=== PATIENT | female | born 1985 | race Caucasian/White ===

== ENCOUNTER 2016-04-26 06:07 | Emergency (ER) | payer OTHER ==
[2016-04-26] MEDS ORDERED: AMOX TR/POT CLAV 875MG/125MG TABLETS (FP) PO ONE (06:23)
--- NOTE | 2016-04-26 06:23 | PDOC ---
History of Present Illness - General Stated Complaint: EAR PAIN History Source: Patient Exam Limitations: No Limitations - History of Present Illness Timing/Duration: 1-3 hours Associated Symptoms: denies: cough, fever/chills, headaches, loss of appetite Past History - Travel Traveled outside of the country in the last 30 days: No Close contact w/someone who was outside of country & ill: No - Past Medical History Allergies/Adverse Reactions: Allergies Allergy/AdvReac Type Severity Reaction Status Date / Time latex Allergy Verified 04/26/16 06:28 Home Medications: Ambulatory Orders Amox-Tr/K Cl [Augmentin - 875Mg Tablet] 1 tab PO BID #14 tablet 04/26/16 Ondansetron [Zofran Odt -] 4 mg SL BID #10 od.tablet 04/26/16 Review of Systems - Review of Systems Able to Perform ROS?: Yes Comments:: 04/26/16 06:18 CONSTITUTIONAL: Absent: fever, chills, diaphoresis, generalized weakness, malaise, loss of appetite HEENT: +left ear pain Absent: rhinorrhea, nasal congestion, throat pain, throat swelling, difficulty swallowing, mouth swelling, eye pain, visual Changes CARDIOVASCULAR: Absent: chest pain, loss of consciousness, palpitations, irregular heart rate, peripheral edema RESPIRATORY: Absent: cough, shortness of breath, dyspnea with exertion, orthopnea, wheezing, stridor, hemoptysis GASTROINTESTINAL: Absent: abdominal pain, abdominal distension, nausea, vomiting, diarrhea, constipation, melena, hematochezia GENITOURINARY: Absent: dysuria, frequency, urgency, hesitancy, hematuria, flank pain, genital pain MUSCULOSKELETAL: Absent: myalgia, arthralgia, joint swelling SKIN: Absent: rash, itching, pallor Is the patient limited Bahraini proficient: No *Physical Exam - Physical Exam Comments: 04/26/16 06:19 GENERAL: Well developed, well nourished. Awake and alert. No acute distress. HEENT: left ear: TM/erythematous and bulging canal: Within normal limits/no stenosis/ no erythematous/ no pain on auricular movement Normocephalic, atraumatic. PERRLA, EOMI. No conjunctival pallor. Sclera are non- icteric. Moist mucous membranes. Oropharynx is clear. NECK: Supple. Full ROM. No JVD. Carotid pulses 2+ and symmetric, without bruits. No thyromegaly. No lymphadenopathy. CARDIOVASCULAR: Regular rate and rhythm. No murmurs, rubs, or gallops. Distal pulses are 2+ and symmetric. PULMONARY: No evidence of respiratory distress. Lungs clear to auscultation bilaterally. No wheezing, rales or rhonchi. ABDOMINAL: Soft. Non-tender. Non-distended. No rebound or guarding. No organomegaly. Normoactive bowel sounds. MUSCULOSKELETAL Normal range of motion at all joints. No bony deformities or tenderness. No CVA tenderness. EXTREMITIES: No cyanosis. No clubbing. No edema. No calf tenderness. SKIN: Warm and dry. Normal capillary refill. No rashes. No jaundice. NEUROLOGICAL: Alert, awake, appropriate. Cranial nerves 2-12 intact. No deficits to light touch and temperature in face, upper extremities and lower extremities. No motor deficits in the in face, upper extremities and lower extremities. Normoreflexic in the upper and lower extremities. Normal speech. Toes are down- going bilaterally. Gait is normal without ataxia. PSYCHIATRIC: Cooperative. Good eye contact. Appropriate mood and affect. *DC/Admit/Observation/Transfer Diagnosis at time of Disposition: Left otitis media Qualifiers: Otitis media type: unspecified Chronicity: unspecified Qualified Code(s): H66.92 - Otitis media, unspecified, left ear - Discharge Dispostion Disposition: HOME Condition at time of disposition: Fair - Prescriptions Prescriptions: Amox-Tr/K Cl [Augmentin - 875Mg Tablet] 1 tab PO BID #14 tablet Ondansetron [Zofran Odt -] 4 mg SL BID #10 od.tablet - Referrals Referrals: Milo Lomeli MD [Staff Physician] - - Patient Instructions Printed Discharge Instructions: Middle Ear Infection Additional Instructions: Tylenol/Motrin as needed for pain Take the amoxicillin antibiotics Return to the ER for severe/persistent/worsening symptoms Progress Note - Progress Note Progress Note: 30-year-old female presents to the emergency department complaining of left ear pain 1 day. Pain is described as 5/10 dull nonradiating constant discomfort without nausea/vomiting, fever/chills, difficulty hearing, sore throat, rhinorrhea, neck pains, chest pain, shortness of breath. Patient is currently on Tamiflu after being diagnosed for influenza A 4 days ago.
[2016-04-26] MEDS ORDERED: ONDANSETRON *ODT* 4 MG TABLET SL ONE (06:28)
[2016-04-26] MEDS ORDERED: ONDANSETRON *ODT* 4 MG TABLET ONE (06:29)
[2016-04-26 06:31] VITALS: BP 115/77; PULSE 90; TEMP 97.7; BMI 29.7
== END 2016-04-26 06:58 | disposition home or self-care (01) ==
LOC: JER 06:07
DX: H66.92 Otitis media, unspecified, left ear (principal)
CPT/HCPCS: 99281-25

== ENCOUNTER 2018-06-14 20:12 | Emergency (ER) | payer OTHER ==
[2018-06-14 20:40] VITALS: BP 149/85; PULSE 106; TEMP 98.7; BMI 31.2
[2018-06-14] MEDS ORDERED: IBUPROFEN 600 MG TABLET (FP) PO ONE ×2 (20:51→21:22)
[2018-06-14] MEDS ORDERED: MINERAL OIL ENEMA 133 ML ENEMA PR ONE ×2 (20:51→21:14)
[2018-06-14] MEDS ORDERED: MAGNESIUM HYDROX 2400MG/30ML ORAL SUSPENSION 30 ML CUP PO ONE (20:51)
--- NOTE | 2018-06-14 21:15 | PDOC ---
History of Present Illness <MikeAnniayvette Flores - Last Filed: 06/14/18 22:16> - General History Source: Patient Exam Limitations: No Limitations - History of Present Illness Initial Comments: 06/14/18 22:22 The patient is a 32 year old female with prior who presents to the emergency department for evaluation of constipation. Patient reports constipation but endorses flatus since Wednesday when she had a done on Wednesday at [facility]. She states she has been unable to have a bowel movement. The patient denies chest pain, shortness of breath, headache, dizziness, nausea , vomiting, fevers, chills, diarrhea, dysuria, hematuria, and urinary urgency/ frequency. Allergies: Latex Social History: No reported alcohol, cigarette, or drug use. Surgical History: PCP: Not on staff <Enrique Graf - Last Filed: 06/14/18 22:23> - General Chief Complaint: Vaginal Bleeding Stated Complaint: VAGINAL BLEEDING Time Seen by Provider: 06/14/18 20:17 Past History - Suicide/Smoking/Psychosocial Hx Smoking History: Never smoked Have you smoked in the past 12 months: No Information on smoking cessation initiated: No Hx Alcohol Use: No Drug/Substance Use Hx: No <Annia Mckeon - Last Filed: 06/14/18 22:16> <Enrique Graf - Last Filed: 06/14/18 22:23> - Past Medical History Allergies/Adverse Reactions: Allergies Allergy/AdvReac Type Severity Reaction Status Date / Time latex Allergy Verified 06/14/18 20:40 Home Medications: Ambulatory Orders Amox-Tr/K Cl [Augmentin - 875Mg Tablet] 1 tab PO BID #14 tablet 04/26/16 Ondansetron [Zofran Odt -] 4 mg SL BID #10 od.tablet 04/26/16 Review of Systems - Review of Systems Able to Perform ROS?: Yes Comments:: 06/14/18 22:23 CONSTITUTIONAL: Absent: fever, chills, diaphoresis, generalized weakness, malaise, loss of appetite HEENT: Absent: rhinorrhea, nasal congestion, throat pain, throat swelling, difficulty swallowing, mouth swelling, ear pain, eye pain, visual Changes CARDIOVASCULAR: Absent: chest pain, syncope, palpitations, irregular heart rate, lightheadedness , peripheral edema RESPIRATORY: Absent: cough, shortness of breath, dyspnea with exertion, orthopnea, wheezing, stridor, hemoptysis GASTROINTESTINAL: (+)Constipation. Absent: abdominal pain, abdominal distension, nausea, vomiting, diarrhea, melena , hematochezia GENITOURINARY: Absent: dysuria, frequency, urgency, hesitancy, hematuria, flank pain, genital pain MUSCULOSKELETAL: Absent: myalgia, arthralgia, joint swelling SKIN: Absent: rash, itching, pallor HEMATOLOGIC/IMMUNOLOGIC: Absent: easy bleeding, easy bruising, lymphadenopathy, frequent infections ENDOCRINE: Absent: unexplained weight gain, unexplained weight loss, heat intolerance, cold intolerance NEUROLOGIC: Absent: headache, focal weakness or paresthesias, dizziness, unsteady gait, seizure, mental status changes, bladder or bowel incontinence PSYCHIATRIC: Absent: anxiety, depression, suicidal or homicidal ideation, hallucinations. <Enrique Graf - Last Filed: 06/14/18 22:23> *Physical Exam - Vital Signs Last Vital Signs Temp Pulse Resp BP Pulse Ox 98.7 F 106 H 18 149/85 98 06/14/18 20:12 06/14/18 20:12 06/14/18 20:12 06/14/18 20:12 06/14/18 20:12 <Annia Mckeon - Last Filed: 06/14/18 22:16> - Vital Signs Last Vital Signs Temp Pulse Resp BP Pulse Ox 98.7 F 106 H 18 149/85 98 06/14/18 20:12 06/14/18 20:12 06/14/18 20:12 06/14/18 20:12 06/14/18 20:12 - Physical Exam Comments: 06/14/18 22:23 GENERAL: Well developed, well nourished. Awake and alert. No acute distress. HEENT: Normocephalic, atraumatic. PERRLA, EOMI. No conjunctival pallor. Sclera are non- icteric. Moist mucous membranes. Oropharynx is clear. NECK: Supple. Full ROM. No JVD. Carotid pulses 2+ and symmetric, without bruits. No thyromegaly. No lymphadenopathy. CARDIOVASCULAR: Regular rate and rhythm. No murmurs, rubs, or gallops. Distal pulses are 2+ and symmetric. PULMONARY: No evidence of respiratory distress. Lungs clear to auscultation bilaterally. No wheezing, rales or rhonchi. ABDOMINAL: non tender, surgical scar from . Non-distended. No rebound or guarding. RECTAL: (+)fecal impaction, no hemorrhoids MUSCULOSKELETAL Normal range of motion at all joints. No bony deformities or tenderness. No CVA tenderness. EXTREMITIES: No cyanosis. No clubbing. No edema. No calf tenderness. SKIN: Warm and dry. Normal capillary refill. No rashes. No jaundice. NEUROLOGICAL: Alert, awake, appropriate. Cranial nerves 2-12 intact. No deficits to light touch and temperature in face, upper extremities and lower extremities. No motor deficits in the in face, upper extremities and lower extremities. Normoreflexic in the upper and lower extremities. Normal speech. Toes are down- going bilaterally. Gait is normal without ataxia. PSYCHIATRIC: Cooperative. Good eye contact. Appropriate mood and affect. <Enrique Graf - Last Filed: 06/14/18 22:23> *DC/Admit/Observation/Transfer <Annia Mckeon - Last Filed: 06/14/18 22:16> - Attestations Scribe Attestion: 06/14/18 22:23 Documentation prepared by Enrique Graf, acting as regional medical director for Annia Mckeon MD. <Enrique Graf - Last Filed: 06/14/18 22:23> Diagnosis at time of Disposition: Fecal impaction - Discharge Dispostion Disposition: HOME Condition at time of disposition: Stable - Referrals Referrals: ON STAFF,NOT [Primary Care Provider] - - Patient Instructions Printed Discharge Instructions: DI for Constipation, DI for Fecal Impaction Additional Instructions: please take MIRALAX as directed for your constipation Keep your l tacker appointments - Post Discharge Activity
== END 2018-06-14 22:47 | disposition home or self-care (01) ==
LOC: JER 20:12
DX: O90.89 Other complications of the puerperium, not elsewhere classified (principal); K59.09 Other constipation
CPT/HCPCS: 99282-25